=== PATIENT | male | born 1990 | race Caucasian/White ===

== ENCOUNTER 2019-03-14 21:18 | Emergency (ER) | payer OTHER ==
[2019-03-14 21:31] VITALS: BP 134/79
--- NOTE | 2019-03-14 21:54 | EDM.PDOC ---
<AndreiaOra parisi - Last Filed: 03/14/19 22:37> ED HPI GENERAL MEDICAL PROBLEM - General Chief Complaint: Upper Extremity Injury/Pain Stated Complaint: LEFT WRIST INJURY WORK RELATED Time Seen by Provider: 03/14/19 21:42 Source of Information: Reports: Patient History Limitations: Reports: No Limitations - History of Present Illness INITIAL COMMENTS - FREE TEXT/NARRATIVE: 29-year-old male presents for evaluation and treatment and injury to the right wrist. Patient reports that they were serving a warrant on . He is a [employer]. States that he fell down a hill. Since then he has been experiencing pain to the right wrist primarily on the radial side. He reports numbness and tingling into the thumb and index finger. Reports decreased range of motion. Has been taking Motrin and icing the wrist but continues to have pain. No history of any previous injury to the wrist. Patient is right-handed. Right Wrist Pain Score (Numeric/FACES): 5 - Related Data Allergies Allergy/AdvReac Type Severity Reaction Status Date / Time No Known Allergies Allergy Verified 03/14/19 21:31 Home Meds: Home Meds Methylphenidate HCl [Methylphenidate ER] 36 mg PO DAILY 03/14/19 [History] Past Medical History Psychiatric History: Reports: ADHD, Depression - Past Surgical History HEENT Surgical History: Reports: Adenoidectomy, Myringotomy w Tube(s), Tonsillectomy GI Surgical History: Reports: Colonoscopy Musculoskeletal Surgical History: Reports: Arthroscopic Knee Social & Family History - Tobacco Use Smoking Status *Q: Never Smoker - Caffeine Use Caffeine Use: Reports: Soda - Recreational Drug Use Recreational Drug Use: No - Living Situation & Occupation Living situation: Reports: Alone, Single Occupation: Employed Review of Systems - Review of Systems Review Of Systems: See Below Musculoskeletal: Reports: Joint Pain (right wrist) Skin: Denies: Wound Neurological: Reports: Numbness (first and second rigth fingers), Tingling ( first and second right fingers) ED EXAM, GENERAL - Physical Exam Exam: See Below Exam Limited By: No Limitations General Appearance: Alert, WD/WN, No Apparent Distress Throat/Mouth: Normal Inspection, Normal Voice, No Airway Compromise Cardiovascular: Normal Peripheral Pulses, Regular Rate, Rhythm Peripheral Pulses: 2+: Radial (R) Extremities: Normal Inspection (no obvious abnormalities present), Normal Capillary Refill, Joint Swelling (slight swelling to the right wrist), Limited Range of Motion (pain with flexion and extension of the right wrist), Other (+ snuff box tenderness) Neurological: Alert, Oriented, Normal Cognition Psychiatric: Normal Affect, Normal Mood Skin Exam: Warm, Dry, Normal Color. No: Erythema, Increased Warmth Course - Vital Signs Last Recorded V/S: Last Vital Signs Temp 36.6 C 03/14/19 21:27 Pulse 69 03/14/19 21:27 Resp 16 03/14/19 21:27 BP 134/79 03/14/19 21:27 Pulse Ox 97 03/14/19 21:27 - Orders/Labs/Meds Orders: Active Orders 24 hr Category Date Time Status Wrist Comp Min 3V Rt [CR] Stat Exams 03/14/19 21:47 Taken Wrist wo Cont Rt [CT] Stat Exams 03/14/19 22:31 Taken - Radiology Interpretation Free Text/Narrative:: xray reviewed by myself and Dr. Valdovinos shows no acute fractures. - Re-Assessments/Exams Free Text/Narrative Re-Assessment/Exam: 03/14/19 22:40 Reviewed the xray results with the patient. Offered option to CT vs. adopt a wait and see approach. Patient would like to pursue CT. Care will be turned over to Dr. Valdovinos as it is end of shift. He will review the CT results with the patient. Departure - Departure Disposition: Home, Self-Care 01 Clinical Impression: Hand contusion - Discharge Information Referrals: Kb Guerrero MD [Primary Care Provider] - Forms: ED Department Discharge Additional Instructions: You were seen in the emergency room for right hand and wrist pain, ever since falling down a hill. Workup in the ER included x-rays of your right wrist, as well as a CT scan of your right upper extremity. No broken bones were found, although you may have some underlying arthritis and inflammation in the hand. We recommend that you take [id number] ibuprofen, 2-3 tablets (400-600 mg) every 8 hours, with food, as needed for discomfort. We recommend that you ice your right hand/wrist as much as possible. If your symptoms persist, please follow-up with the Othopedic Surgeon Dr. Ludwin Howard, for further evaluation. If any other problems, please do not hesitate to return to the ER. <Akira Valdovinos Josephine - Last Filed: 03/14/19 23:37> Course - Re-Assessments/Exams Free Text/Narrative Re-Assessment/Exam: 03/14/19 23:29 CT of the right upper extremity without contrast is read by vRmitzi as: 1. No acute fracture seen. 2. Erosions in the lunate and base of the second metacarpal. Correlate clinically for history of inflammatory arthropathy. 3. Joint effusion, could be secondary to trauma or inflammation. The body of the report indicates a carpal joint effusion. 03/14/19 23:33 CT results discussed with the patient, and the patient was examined. His area of pain is not in the areas of inflammation. He likely has some underlying arthritis in his hand, and may have some local contusion or inflammation from falling, but there are no broken bones, and he does not need splinting. I am recommending ice and anti-inflammatories. I will refer him to Ortho, in case his symptoms don't improve. Departure - Departure Time of Disposition: 23:34 Condition: Good - Discharge Information *PRESCRIPTION DRUG MONITORING PROGRAM REVIEWED*: Not Applicable *COPY OF PRESCRIPTION DRUG MONITORING REPORT IN PATIENT ALEXIS: Not Applicable
--- NOTE | 2019-03-16 09:22 | CR ---
Right wrist: Four views of the right wrist were obtained. Comparison: No prior wrist exam. Joint spaces are preserved. No fracture, dislocation or other bony abnormality is seen. Impression: 1. No bony abnormality is identified on right wrist exam. Diagnostic code #1
--- NOTE | 2019-03-16 09:22 | CT ---
CT right wrist Technique: Multiple axial sections through the right wrist were obtained. Reconstructed coronal and sagittal images were reviewed. Findings: Joint spaces are preserved. No fracture is identified. Preliminary report mentions erosions at the base of the 2nd metacarpal which I believe are not a real finding. There is a focal well-corticated defect noted off the radial side of the lunate bone which is felt to be old. No additional abnormality is appreciated. Impression: 1. Well-corticated defect off the radial side of the lunate bone which is felt to be old. 2. Nothing acute is appreciated on CT study of the right wrist. Diagnostic code #2 Mostly agree with preliminary report from [facility] (please see above), finalized on 03/15/19, 12:27 AM Central Time, code #2
== END 2019-03-14 23:44 | disposition home or self-care (01) ==
LOC: JD.ED 21:18
DX: S60.221A Contusion of right hand, initial encounter (principal); F90.9 Attention-deficit hyperactivity disorder, unspecified type; Z79.899 Other long term (current) drug therapy; W17.81XA Fall down embankment (hill), initial encounter; Y99.0 Civilian activity done for income or pay
CPT/HCPCS: 73110-26-RT; 73110-RT; 73200-26-RT; 73200-RT; 99282; 99284-25

== ENCOUNTER 2025-01-01 03:04 | Emergency (ER) | payer OTHER ==
[2025-01-01 03:49] LABS: APPEARANCE,URINE TURBID (Clear); BILIRUBIN,URINE 1+ (Negative); COLOR,URINE BROWN (Yellow); GLUCOSE,URINE NEGATIVE (Negative); KETONES,URINE TRACE (Negative); LEUKOCYTE ESTERASE,URINE 1+ (Negative); NITRITE,URINE POSITIVE (Negative); OCCULT BLOOD,URINE 3+ (Negative); PROTEIN,URINE 3+ (Negative)
[2025-01-01] MEDS: Sodium Chloride 0.9% 1,000 ML IV ONE (03:56)
[2025-01-01] MEDS: Sodium Chloride 0.9% 10 ML Syringe FLUSH ONE (04:07)
[2025-01-01 04:13] LABS: BASOPHILS ABSOLUTE AUTO 0.1 K/mm3 (0.0-0.2); BASOPHILS PERCENT AUTO 0.3 % (0.0-1.0); EOSINOPHILS ABSOLUTE AUTO 0.1 K/mm3 (0.0-0.4); EOSINOPHILS PERCENT AUTO 0.8 % (0.0-6.0); HEMATOCRIT 43.3 % (42.0-52.0); HEMOGLOBIN 15.4 gm/dl (14.0-18.0); IMMATURE GRAN ABSOLUTE AUTO 0.04 K/mm3 (0.00-0.05); IMMATURE GRAN PERCENT AUTO 0.3 % (0.0-0.4); LYMPHOCYTES PERCENT AUTO 12.9 % (24.0-44.0); MEAN CORPUSCULAR HEMOGLOBIN 30.7 pg (28.0-32.0); MEAN CORPUSCULAR HGB CONC 35.6 g/dl (32.0-36.0); MEAN CORPUSCULAR VOLUME 86.3 fl (83.0-99.0); MEAN PLATELET VOLUME 9.7 fl (9.4-12.4); MONOCYTES ABSOLUTE AUTO 0.9 K/mm3 (0.0-0.8); MONOCYTES PERCENT AUTO 5.7 % (0.0-8.0); NEUTROPHILS ABSOLUTE AUTO 12.5 K/mm3 (1.8-7.7); PLATELET COUNT,PLT 223 K/mm3 (150-400); RED BLOOD CELL COUNT 5.02 M/mm3 (4.52-5.90); WHITE BLOOD CELL COUNT,WBC 15.68 K/mm3 (3.9-11.3)
[2025-01-01] MEDS: Iopamidol 612 MG/ML 100 ML Bottle IVPUSH ONE (04:14)
[2025-01-01] MEDS: Iopamidol 612 MG/ML 30 ML SDV IVPUSH ONE (04:14)
[2025-01-01] MEDS: Sodium Chloride 0.9% 10 ML Syringe FLUSH PRN (04:15)
[2025-01-01 04:17] LABS: BACTERIA,URINE FEW /hpf (FEW); EPITHELIAL CELLS,URINE 0-5 /hpf (0-5); MUCUS,URINE RARE /hpf (FEW); RBC,URINE TOO NUMEROUS TO CNT /hpf (0-5); WBC,URINE 20-30 /hpf (0-5)
[2025-01-01 04:55] LABS: A/G RATIO 1.1 (1-2); ALBUMIN 4.3 g/dl (3.4-5.0); ANION GAP 13.5 (5-15); BILIRUBIN TOTAL 0.9 mg/dL (0.2-1.0); CALCIUM 9.1 mg/dL (8.5-10.1); EST CRCL DRUG DOSING (CG) 119.85 mL/min; POTASSIUM,K 3.5 mEq/L (3.5-5.1); PROTEIN TOTAL,TP 8.4 g/dl (6.4-8.2)
[2025-01-01] MEDS: cefTRIAXone 2 GM Vial IVPUSH ONE (06:06)
[2025-01-01 06:20] VITALS: BP 124/76; PULSE 92
== END 2025-01-01 06:10 | disposition home or self-care (01) ==
LOC: JD.ED 03:04
DX: N39.0 Urinary tract infection, site not specified (principal); Z86.16 Personal history of COVID-19; Z87.891 Personal history of nicotine dependence; Z79.899 Other long term (current) drug therapy
CPT/HCPCS: 36415; 74177; 80053; 81001; 82550; 83690; 85025; 87086; 96361; 96374; 99284; J0696; J7030; Q9967; 87088; 87186